=== PATIENT | male | born 1965 | race Caucasian/White ===

== ENCOUNTER 2019-10-11 08:59 | Inpatient (IN) | payer OTHER ==
[~2019-10-11] VITALS: Ht 175.3 cm; Wt 127.2 kg
[2019-10-11 09:58] LABS: BASOPHILS % (AUTO) 0.6 % (0.0-5.0); EOSINOPHILS % (AUTO) 0.6 % (0.0-8.0); HEMATOCRIT 48.8 % (42-54); LYMPHOCYTES % (AUTO) 23.2 % (21.0-51.0); MEAN CORPUSCULAR HEMOGLOBIN 33.2 pg (27.0-33.0); MEAN CORPUSCULAR HGB CONC 35.7 g/dL (32.0-36.0); MEAN CORPUSCULAR VOLUME 93.1 fL (79-99); MONOCYTES % (AUTO) 8.5 % (3.0-13.0); NEUTROPHILS % (AUTO) 67.1 % (40.0-77.0); PLATELET COUNT (AUTO) 185 K/uL (130-400); RED BLOOD CELL COUNT(AUTO) 5.24 MIL/uL (4.50-6.20); RED CELL DISTRIBUTION WIDTH 12.6 % (11.0-15.5); WHITE BLOOD COUNT (AUTO) 10.2 K/uL (4.8-10.8)
[2019-10-11 10:04] LABS: APPEARANCE,URINE Clear (CLEAR); BILIRUBIN,URINE Small (NEGATIVE); COLOR,URINE Dark Yellow (YELLOW); GLUCOSE, URINE (UA) Negative (NEGATIVE); KETONES,URINE 40 mg/dL (NEGATIVE); LEUKOCYTE ESTERASE ,URINE Negative (NEGATIVE); NITRATE,URINE Negative (NEGATIVE); OCCULT BLOOD,URINE Negative (NEGATIVE); PH,URINE 6.5 (5.0-8.0); PROTEIN,URINE Trace mg/dL (NEGATIVE)
[2019-10-11 10:05] LABS: BACTERIA,URINE Few /HPF (None Seen); MUCUS,URINE Moderate LPF (None Seen); RBC,URINE 0-1 /HPF (0-1); SQUAMOUS EPITHELIAL CELL,UR Rare /HPF (0-2); WBC,URINE 0-1 /HPF (0-1)
[2019-10-11 10:12] LABS: INR 1.02 (0.85-1.15); PARTIAL THROMBOPLASTIN TIME 29.6 SEC (26.3-35.5); PROTHROMBIN TIME 10.7 SEC (9.6-11.6)
[2019-10-11] MEDS ORDERED: KETOROLAC TROMETHAMINE 30MG/ML ONE (10:13)
[2019-10-11] MEDS ORDERED: SODIUM CHLORIDE 0.9% 1000ML 1,000 ML IV ONE ×3 (10:13→16:01)
[2019-10-11] MEDS ORDERED: DiphenhydrAMINE HCL 50 MG/ML VIAL ONE (10:13)
[2019-10-11] MEDS ORDERED: ONDANSETRON HCL 4 MG/2 ML VIAL ONE (10:13)
[2019-10-11 10:32] LABS: CREATININE 0.9 mg/dL (0.5-1.5); POTASSIUM 3.2 mmol/L (3.5-5.1)
[2019-10-11 11:07] LABS: ALBUMIN 3.9 g/dL (3.5-5.0); BILIRUBIN,TOTAL 1.1 mg/dL (0.2-1.0); TOTAL PROTEIN, SERUM 7.6 g/dL (6.0-8.3)
[2019-10-11] MEDS ORDERED: POTASSIUM CHLORIDE 20 MEQ ERTAB PO ONE (14:54)
[2019-10-11] MEDS ORDERED: ENOXAPARIN SODIUM 30 MG/0.3 ML SQ ONE (16:00)
[2019-10-11 17:45] VITALS: BP 127/79
[2019-10-11] MEDS ORDERED: CARV25TA PO (18:12)
[2019-10-11] MEDS ORDERED: SPIR50TA5 PO (18:12)
[2019-10-11] MEDS ORDERED: AMLO10TA7 PO (18:12)
[2019-10-11] MEDS ORDERED: HYDR25TA PO (18:12)
[2019-10-11] MEDS ORDERED: FLU VACC QS2019-20 36MOS UP/PF 60 MCG/0.5 ML ML IM ONE (18:15)
[2019-10-11] MEDS ORDERED: ACETAMINOPHEN 325 MG TAB PO PRN (19:00)
[2019-10-11] MEDS ORDERED: ONDANSETRON HCL 4 MG/2 ML VIAL IVP PRN (19:00)
[2019-10-11] MEDS: SODIUM CHLORIDE 0.9% 1000ML 1,000 ML IV SCH (19:15)
--- NOTE | 2019-10-11 19:25 | NUR ---
PM ASSESSMENT PATIENT RESTING IN BED SPOUSE AT SIDE. NO DISTRESS AT THIS TIME ALL QUESTIONS AND CONCERNS ADDRESSED.
[2019-10-11 20:09] VITALS: BP 117/75
[2019-10-12 00:08] VITALS: BP 112/73
[2019-10-12 04:20] VITALS: BP 113/72
[2019-10-12 05:17] LABS: CREATININE 0.8 mg/dL (0.5-1.5); MAGNESIUM 1.7 mg/dL (1.80-2.40); POTASSIUM 3.4 mmol/L (3.5-5.1)
[2019-10-12 05:20] LABS: HEMATOCRIT 43.9 % (42-54); MEAN CORPUSCULAR HEMOGLOBIN 32.6 pg (27.0-33.0); MEAN CORPUSCULAR HGB CONC 34.8 g/dL (32.0-36.0); MEAN CORPUSCULAR VOLUME 93.8 fL (79-99); PLATELET COUNT (AUTO) 202 K/uL (130-400); RED BLOOD CELL COUNT(AUTO) 4.68 MIL/uL (4.50-6.20); RED CELL DISTRIBUTION WIDTH 12.7 % (11.0-15.5); WHITE BLOOD COUNT (AUTO) 8.8 K/uL (4.8-10.8)
[2019-10-12 07:55] VITALS: BP 100/73
[2019-10-12] MEDS: SODIUM CHLORIDE 0.9% 1000ML 1,000 ML IV SCH ×2 (08:20→19:30)
[2019-10-12] MEDS ORDERED: MAGNESIUM 2GM PREMIX 50ML 50 ML IV SCH (09:15)
[2019-10-12] MEDS ORDERED: POTASSIUM CHLORIDE 20MEQ/100ML 100 ML IV PRN (10:15)
[2019-10-12] MEDS ORDERED: POTASSIUM CHLORIDE 10% ELIXIR 20 MEQ/15 ML UDCUP PO PRN (10:15)
[2019-10-12] MEDS ORDERED: LIDOCAINE HCL-MPF 1% 2ML VIAL IV PRN (10:15)
[2019-10-12] MEDS: ENOXAPARIN SODIUM 30 MG/0.3 ML SQ SCH (10:50)
[2019-10-12] MEDS: BENZONATATE 100 MG CAPSULE PO PRN (11:19)
[2019-10-12] MEDS: POTASSIUM CHLORIDE 20 MEQ ERTAB PO PRN ×2 (11:20→14:13)
[2019-10-12 11:39] VITALS: BP 118/82
--- NOTE | 2019-10-12 13:30 | NUR ---
INITIAL ASSESSMENT MET W PATIENT AND SPOUE. [employer], EMPLOYED, ACTIVE- NO DME, NO HH/PROV; DCP IS HOME. PT IS UPSET BECAUSE HIS INSURANCE INFORMATION WAS TAKEN DOWN INCORRECTLY AND HE SHOWS UP HAVING NO INSURANCE, THIS MADES HIM VERY UPSET TIME SPENT EXPLAINING THAT WHEN PTS ARE UNINSURED CM'S WANT TO ENSURE THAT THEY WILL GET THE TREATMENT THEY NEED WHEN THEY LEAVE THE HOSPITAL; THAT IS ONE OF THE REASONS THAT CM COMES TO VISIT. PT DEMONSTRATED POOR UNDERSTANDING AND CONTINUES TO BE UPSET. WILL REFER TO PATIENT ADVOCATE. Addendum: 10/13/19 at 1127 by GOPI XIONG RN CM Amended: Links added.
[2019-10-12] MEDS: LEVOFLOXACIN 750 MG/D5W 150 ML 150 ML IV SCH (14:09)
[2019-10-12 16:00] VITALS: BP 105/68
[2019-10-12] MEDS: CARVEDILOL 25 MG TABLET PO SCH (19:28)
[2019-10-12] MEDS: SPIRONOLACTONE 25 MG TAB PO SCH (19:28)
[2019-10-12 20:20] VITALS: BP 110/69
[2019-10-13 00:20] VITALS: BP 101/70
[2019-10-13 04:20] VITALS: BP 106/76
[2019-10-13 05:30] LABS: CREATININE 0.8 mg/dL (0.5-1.5); MAGNESIUM 1.8 mg/dL (1.80-2.40); POTASSIUM 3.9 mmol/L (3.5-5.1)
[2019-10-13 07:35] VITALS: BP 104/73
[2019-10-13] MEDS: SPIRONOLACTONE 25 MG TAB PO SCH (08:48)
[2019-10-13] MEDS: CARVEDILOL 25 MG TABLET PO SCH (08:50)
[2019-10-13] MEDS: ENOXAPARIN SODIUM 30 MG/0.3 ML SQ SCH (08:52)
[2019-10-13] MEDS: LEVOFLOXACIN 750 MG/D5W 150 ML 150 ML IV SCH (08:52)
[2019-10-13] MEDS ORDERED: AMLODIPINE BESYLATE 5 MG TAB PO SCH (09:00)
[2019-10-13] MEDS ORDERED: HYDROCHLOROTHIAZIDE 25 MG TABLET PO SCH (09:00)
[2019-10-13] MEDS: BENZONATATE 100 MG CAPSULE PO PRN (09:56)
[2019-10-13 11:33] VITALS: BP 108/76
--- NOTE | 2019-10-13 14:00 | NUR ---
DR. JAZMIN GTZ HERE TO SEE PATIENT. ASKED IF MAGNESIUM LEVEL 1.8 SHOULD BE REPLACED AND MD REPLIED IT WAS NOT NECESSARY.
--- NOTE | 2019-10-13 14:30 | NUR ---
DISCHARGE DISCHARGE TEACHING PROVIDED TO PATIENT AND HIS SPOUSE. PROVIDED TEACHING REGARDING RX (LEVAQUIN), HYPONATREMIA CARE AT HOME, SCHEDULED F/U WITH DR. CADE. PATIENT VERBALIZED UNDERSTANDING OF DISCHARGE TEACHING, NO QUESTIONS WHEN ASKED IF HE HAD QUESTIONS/CONCERNS REGARDING DISCHARGE TEACHING. REMOVED 20G IV FROM LEFT AC, CATHETER TIP INTACT. PATIENT TO BE DRIVEN HOME BY HIS SPOUSE. PATIENT REPORTS NO PAIN OR DISCOMFORTS AND REPORTS FEELING READY TO GO HOME.
== END 2019-10-13 14:43 | disposition home or self-care (01) | DRG 194 ==
LOC: EDH 08:59 → EDHIP 09:00 → 4AH 17:10
PROVIDERS: ADMIT Internal Medicine Infectious Disease; ATTEND Internal Medicine Infectious Disease
DX: J18.9 Pneumonia, unspecified organism (principal); E87.1 Hypo-osmolality and hyponatremia; Z68.41 Body mass index [BMI] 40.0-44.9, adult; E87.6 Hypokalemia; B34.9 Viral infection, unspecified; I10 Essential (primary) hypertension; E66.9 Obesity, unspecified; Z87.891 Personal history of nicotine dependence; F10.10 Alcohol abuse, uncomplicated; Z23 Encounter for immunization
CPT/HCPCS: 36415; 71045; 80048; 80053; 81001; 82150; 82550; 83605; 83690; 83735; 83930; 83935; 84443; 84484; 85025; 85027; 85610; 85730; 87040; 87071; 87077; 87186; 87205; 87804; 93005; G0378; J1200; J1650; J1885; J1956; J2405; J3475; J7030; Q2035